=== PATIENT | female | born 1995 | race American Indian/Alaskan Native ===

== ENCOUNTER 2018-05-23 09:30 | Inpatient (IN) | payer MEDICAID ==
[2018-05-23] MEDS ORDERED: PITOCin/NS 20 UNIT/1000ML DRIP 20,000 MILLIUNITS/1,000 ML BAG IV ONE (10:23)
--- NOTE | 2018-05-23 10:56 | History and Physical Report ---
History of Present Illness Date of examination: 05/23/18 Date of admission: 05/23/18 09:31 Chief complaint: Contractions History of present illness: 22yo G1 P 0 at 37 weeks 1 day here with c/o contractions since this AM. She confirms positive movements but denies vaginal bleeding or loss of fluid. The patient verbalized she is a [employer] patient who just recently initiated care in March 2018. No records available. She reports her was complicated by anemia; on iron therapy. She denies any other complications. 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 denies: smoking, alcohol abuse, IV drug use - Obstetrical History Expected Date of Delivery: 06/12/18 Actual Gestation: 37 Week(s) 1 Day(s) : 1 Para: 0 Hx # Term Pregnancies: 0 Number of Pregnancies: 0 Spontaneous Abortions: 0 Induced : 0 Number of Living Children: 0 Medications and Allergies Allergies Allergy/AdvReac Type Severity Reaction Status Date / Time No Known Allergies Allergy Unverified 05/23/18 09:40 Active Meds: Active Medications Oxytocin/Sodium Chloride (Pitocin/Ns 20 Unit/1000ml Drip) 20 units in 1,000 mls @ 125 mls/hr IV DIRECT TUNDE Review of Systems All systems: negative - Vital Signs Vital signs: Vital Signs Pulse BP 78 114/78 05/23/18 09:50 05/23/18 09:50 Temp Pulse Resp BP Pulse Ox 97.8 F 82 18 113/58 05/23/18 09:55 05/23/18 10:39 05/23/18 09:55 05/23/18 10:39 - Obstetrical FHR: auscultation normal, category 1 FHR comments: baseline 130, moderate variability, 15x15 accels, no decels Cervical Dilatation: 9.5 Cervical Effacement Percentage: 100 station: +1 Results All other labs normal. Assessment and Plan - Patient Problems (1) 37 weeks gestation of Current Visit: Yes Status: Acute (2) Active labor at term Current Visit: Yes Status: Acute Plan to address problem: Admit to L&D with routine labor orders Anticipate vaginal delivery
[2018-05-23] MEDS ORDERED: PITOCin/NS 20 UNIT/1000ML DRIP 20 UNITS/1,000 ML BAG IV SCH (11:00)
[2018-05-23] MEDS ORDERED: ZOFRAN IV PRN (11:08)
[2018-05-23] MEDS ORDERED: TYLENOL PO PRN (11:08)
[2018-05-23] MEDS ORDERED: TUCKS PAD TP PRN (11:08)
[2018-05-23] MEDS ORDERED: LANSINOH TP PRN (11:08)
[2018-05-23] MEDS ORDERED: PHENERGAN PO PRN (11:08)
[2018-05-23] MEDS ORDERED: MILK OF MAGNESIA PO PRN (11:08)
[2018-05-23] MEDS ORDERED: BENADRYL PO PRN (11:08)
[2018-05-23] MEDS ORDERED: DULCOLAX PR PRN (11:08)
[2018-05-23] MEDS ORDERED: PHENERGAN PR PRN (11:08)
--- NOTE | 2018-05-23 11:21 | Procedure Note ---
OB Delivery Note - Delivery Date of Delivery: 05/23/18 (10:07) Surgeon: TA RODRIGUEZ (PRAKASH) Estimated blood loss: 200cc - Vaginal Delivery presentation: vertex Delivery position: OA Intrapartum events: precipitous labor- <3hr Delivery induction: none Delivery monitor: external FHT, external uterine Route of delivery: Delivery placenta: spontaneous (10:18) Delivery cord: 3 umbilical vessels Episiotomy: none Delivery laceration: none Anesthesia: none Delivery comments: Precipitous of a vigorous term 6 lbs 1 oz male on 05/23/18 @ 10:07 by Raegan Poole RN. Upon entry into the patient's room, mom and baby [id number], umbilical cord already cut but placenta undelivered. Small lochia present. No IV access, order given for Oxytocin 10units IM. Spontaneous delivery of placenta Kenji-side presenting at 10:18 by PRAKASH Rodriguez. Fundal massage initiated. Fundus F/ML/U. Perineum intact. No lacerations present. Placenta intact. Mom and baby in stable condition. - A at 1 minute: 8 at 5 minutes: 9 Gender: Male (6 lbs 1 oz (2747 gm); 18.5 in)
[2018-05-23] MEDS ORDERED: SODIUM CHLORIDE FLUSH SYRINGE 10 ML IV NR (12:00)
[2018-05-23] MEDS ORDERED: FEOSOL PO SCH (12:00)
[2018-05-23 12:14] LABS: Hematocrit 28.3 % (30.3-42.9); Hemoglobin 9.2 gm/dl (10.1-14.3); Mean Corpuscular HGB Conc 33 % (30-34); Mean Corpuscular Volume 74 fl (79-97); Platelet Count 176 K/mm3 (140-440); Red Blood Count 3.84 M/mm3 (3.65-5.03); Red Cell Distribution Width 18.1 % (13.2-15.2)
[2018-05-23 12:15] LABS: Mean Corpuscular Hemoglobin 24 pg (28-32)
[2018-05-23] MEDS: MOTRIN PO SCH (20:57)
[2018-05-23 21:58] LABS: Amphetamine Screen,Urine PRESUMPTIVE NEGATIVE; Benzodiazepines Screen,Urine PRESUMPTIVE NEGATIVE; Cannabinoid Screen,Urine PRESUMPTIVE NEGATIVE; Cocaine Screen,Urine PRESUMPTIVE NEGATIVE; Methadone Screen,Urine PRESUMPTIVE NEGATIVE; Opiate Screen,Urine PRESUMPTIVE NEGATIVE
[2018-05-23] MEDS: NORCO 5/325 PO PRN (23:53)
[2018-05-24 00:25] LABS: Hematocrit 26.5 % (30.3-42.9); Hemoglobin 9.3 gm/dl (10.1-14.3)
[2018-05-24] MEDS: MOTRIN PO SCH ×2 (05:15→17:10)
[2018-05-24] MEDS: PRENATAL VITAMIN PO SCH (10:48)
--- NOTE | 2018-05-24 16:39 | Progress Note ---
Assessment and Plan - Patient Problems (1) S/P Current Visit: Yes Status: Acute Plan to address problem: PPD-1 - stable Continue routine orders Ambulation encouraged, as tolerated Anticipate discharge in 24-48 hrs Subjective - Subjective Date of service: 05/24/18 Principal diagnosis: PPD#1 s/p Interval history: See H&P and Delivery note Patient reports: appetite normal, voiding normally, pain well controlled, flatus , ambulating normally, no bowel movement : doing well, bottle feeding Objective - Vital Signs Latest vital signs: Vital Signs Temp Pulse Resp BP BP Pulse Ox 05/24/18 07:45 97.1 F L 86 20 90/55 05/24/18 00:00 98.2 F 100 H 18 101/63 05/23/18 20:57 18 05/23/18 20:15 98.2 F 101 H 18 100/56 05/23/18 18:12 98.4 F 05/23/18 17:46 97 H 16 101/62 100 Intake and Output 05/24/18 05/24/18 05/24/18 07:59 15:59 23:59 Intake Total 360 360 Output Total 800 Balance -440 360 Intake: Oral 360 360 Output: Urine 800 Void 800 Other: Total, Intake Amount 120 120 Total, Output Amount 800 # Voids Void 3 1 - Exam Breasts: Present: normal Cardiovascular: Present: Regular rate, Normal S1, Normal S2, No murmurs Lungs: Present: Clear to auscultation, Normal air movement Abdomen: Present: normal appearance, soft, normal bowel sounds. Absent: distention, tenderness Vulva: both: normal Uterus: Present: firm, fundal height at umbilicus Extremities: Present: normal Deep Tendon Reflex Grade: Normal +2 - Labs Labs: Abnormal lab results 05/23/18 Range/Units 23:58 Hgb 9.3 L (10.1-14.3) gm/dl Hct 26.5 L (30.3-42.9) %
--- NOTE | 2018-05-24 16:41 | Discharge Summary ---
Providers - Providers Date of Admission: 05/23/18 09:31 Date of discharge: 05/25/18 Attending physician: PATRIC ESPANA MD Primary care physician: PATRIC ESPANA MD Hospitalization Reason for admission: active labor, IUP at term Delivery: Procedure details: See delivery note Episiotomy: none Laceration: none Other procedures: none complications: none Discharge diagnosis: IUP at term delivered [place] baby: male Condition at discharge: Good Disposition: DC-01 TO HOME OR SELFCARE Plan - Provider Discharge Summary Activity: routine, no sex for 6 weeks, no heavy lifting 4 weeks, no strenuous exercise Diet: routine Instructions: routine Additional instructions: [] Smoking cessation referral if applicable(refer to patient education folder for contact #) [] Refer to [facility] Booklet Call your doctor immediately for: * Fever > 100.5 * Heavy vaginal bleeding ( >1 pad per hour) * Severe persistent headache * Shortness of breath * Reddened, hot, painful area to leg or breast * Drainage or odor from incision. * Keep incision clean and dry at all times and follow doctor's instructions regarding bathing/showering - Follow up plan Follow up: PATRIC ESPANA MD [Primary Care Provider] - 6 Weeks
[2018-05-24] MEDS: NORCO 5/325 PO PRN (20:45)
[2018-05-25] MEDS: MOTRIN PO SCH ×2 (03:49→09:10)
[2018-05-25] MEDS: PRENATAL VITAMIN PO SCH (09:11)
[2018-05-25 10:18] VITALS: BP 107/60
== END 2018-05-25 12:23 | disposition home or self-care (01) | DRG 775 ==
LOC: TRG 09:30 → LD 09:31 → TRG 09:51 → OB 12:45
PROVIDERS: ADMIT Obstetrics & Gynecology; ATTEND Obstetrics & Gynecology
PROC: 10E0XZZ Delivery of Products of Conception, External Approach (ICD-10-PCS; principal; 2018-05-23)
DX: O62.3 Precipitate labor (principal); Z3A.37 37 weeks gestation of pregnancy; Z37.0 Single live birth; Z82.49 Family history of ischemic heart disease and other diseases of the circulatory system; Z80.0 Family history of malignant neoplasm of digestive organs; O99.02 Anemia complicating childbirth; D64.9 Anemia, unspecified
CPT/HCPCS: 36415; 80307; 85014; 85018; 85027; 86592; 86706; 86762; 86850; 86900; 86901; 87806; J2590